=== PATIENT | male | born 2000 | race Caucasian/White ===

== ENCOUNTER 2022-09-30 14:30 | Emergency (ER) | payer OTHER, MEDICAID ==
[~2022-09-30] VITALS: Ht 185.4 cm; Wt 77.1 kg
[2022-09-30 14:48] VITALS: BP_SYST 127
--- NOTE | 2022-09-30 15:25 | NUR ---
MD BARBER IN TRIAGE FOR MSE.
[2022-09-30] MEDS ORDERED: FAMO40TA71 PO (15:41)
[2022-09-30] MEDS ORDERED: ONDA-8 TL (15:41)
[2022-09-30] MEDS ORDERED: ANT30 PO (15:41)
[2022-09-30] MEDS ORDERED: SIME180C35 PO (15:41)
[2022-09-30] MEDS ORDERED: MAG HYDROX/AL HYDROX/SIMETH 30 ML, DICYCLOMINE HCL 20 MG, LIDOCAINE VISCOUS 2% 15ML (PO... PO ONE ×3 (15:45)
[2022-09-30] MEDS ORDERED: ONDANSETRON 4 MG ODT TAB PO ONE (15:45)
[2022-09-30 16:01] LABS: BASOPHILS % (AUTO) 0.2 % (0.0-2.0); EOSINOPHILS % (AUTO) 0.4 % (0.0-4.0); HEMATOCRIT 42.3 % (36-54); LYMPHOCYTES # (AUTO) 1.6 K/uL (1.0-5.5); LYMPHOCYTES % (AUTO) 12.9 % (20.5-51.5); MEAN CORPUSCULAR HEMOGLOBIN 29 pg (27-31); MEAN CORPUSCULAR HGB CONC 33 % (32-36); MEAN CORPUSCULAR VOLUME 87 fL (79.0-98.0); MONOCYTES # (AUTO) 1.1 K/uL (0.0-1.0); MONOCYTES % (AUTO) 8.8 % (1.7-9.3); NEUTROPHILS # (AUTO) 9.6 K/uL (1.8-7.7); NEUTROPHILS % (AUTO) 77.7 % (40.0-70.0); PLATELET COUNT (AUTO) 295 K/uL (130-430); RED BLOOD CELL COUNT(AUTO) 4.86 MIL/uL (4.2-6.2); RED CELL DISTRIBUTION WIDTH 14.8 % (9.0-15.0); WHITE BLOOD COUNT (AUTO) 12.3 K/uL (4.5-11.0)
[2022-09-30 16:12] LABS: CREATININE 0.67 mg/dL (0.55-1.30)
[2022-09-30 16:16] LABS: ALBUMIN 4.4 g/dL (3.4-4.8); TOTAL BILIRUBIN 0.4 mg/dL (0.0-1.0)
[2022-09-30 16:22] VITALS: BP_SYST 124
--- NOTE | 2022-09-30 16:22 | NUR ---
Patient given written and verbal discharge instructions and verbalizes understanding. ER MD discussed with patient the results and treatment provided. Patient in stable condition. ID arm band removed. IV catheter removed intact and dressing applied, no active bleeding. Rx of MYLANTA, PEPCID, ZOFRAN AND SIMETHICONE given. Patient educated on pain management and to follow up with PMD. Pain Scale 2/10. Opportunity for questions provided and answered. Medication side effect fact sheet provided.
== END 2022-09-30 16:22 | disposition home or self-care (01) ==
LOC: SED 14:30
DX: A08.4 Viral intestinal infection, unspecified (principal); R10.84 Generalized abdominal pain; R11.0 Nausea; Z79.899 Other long term (current) drug therapy
CPT/HCPCS: 99283; 80053; 83690; 85025; 36415; Q0162; J2001

== ENCOUNTER 2023-05-11 21:22 | Emergency (ER) | payer MEDICAID, OTHER ==
[~2023-05-11] VITALS: Ht 185.4 cm; Wt 71.2 kg
[~2023-05-11 21:22] MED LIST: ANT30 PO; FAMO40TA71 PO; ONDA-8 TL; SIME180C35 PO
[2023-05-11 21:27] VITALS: BP_SYST 138; PULSE 96; RESP 18; TEMP 97.6; O2SAT 98
[2023-05-11] MEDS ORDERED: IBUPROFEN 600 MG TABLET PO ONE (23:00)
[2023-05-11] MEDS ORDERED: NAPR-690 PO (23:47)
[2023-05-11 23:54] VITALS: BP_SYST 130; PULSE 96; RESP 18; TEMP 97.6; O2SAT 98
== END 2023-05-11 23:55 | disposition home or self-care (01) ==
LOC: SED 21:22
DX: S92.354A Nondisplaced fracture of fifth metatarsal bone, right foot, initial encounter for closed fracture (principal); Z79.899 Other long term (current) drug therapy; W18.49XA Other slipping, tripping and stumbling without falling, initial encounter; Y93.89 Activity, other specified; Y92.89 Other specified places as the place of occurrence of the external cause; Y99.8 Other external cause status
CPT/HCPCS: 99283

== ENCOUNTER 2023-12-04 16:49 | Emergency (ER) | payer SELFPAY ==
[~2023-12-04] VITALS: Ht 185.4 cm; Wt 74.8 kg
[~2023-12-04 16:49] MED LIST changes: +NAPR-690 PO
[2023-12-04 18:09] VITALS: BP_SYST 127; PULSE 82; RESP 18; TEMP 98.3; O2SAT 99
== END 2023-12-04 20:02 | disposition home or self-care (01) ==
LOC: SED 16:49
DX: Z20.2 Contact with and (suspected) exposure to infections with a predominantly sexual mode of transmission (principal); Z79.899 Other long term (current) drug therapy
CPT/HCPCS: 36415; 87491; 99283